=== PATIENT | female | born 1965 | race African-American/Black ===

== ENCOUNTER 2020-04-23 04:18 | Day surgery (SDC) | payer OTHER ==
[2020-04-20 09:58] VITALS: BMI 34.7
[2020-04-23] MEDS ORDERED: MIDAZOLAM HCL 2 MG/2 ML SINGLE DOSE VIAL ONE (08:41)
[2020-04-23] MEDS ORDERED: PROPOFOL 20 ML ONE (08:50)
[2020-04-23 11:56] VITALS: BP 135/94; PULSE 68; TEMP 97.5
== END 2020-04-23 11:56 | disposition home or self-care (01) ==
LOC: JASU-SURG 04:18
PROVIDERS: ATTEND Urology
PROC: 0TF6XZZ Fragmentation in Right Ureter, External Approach (ICD-10-PCS; principal; 2020-04-23 09:00)
DX: N20.1 Calculus of ureter (principal)
CPT/HCPCS: 82962